=== PATIENT | female | born 1975 ===

== ENCOUNTER 2022-09-27 12:51 | Inpatient (IN) | payer OTHER ==
[~2022-09-27] VITALS: Ht 165.1 cm; Wt 93.0 kg
[2022-09-28] MEDS ORDERED: VASOTEC2.5 MG PO (09:50)
[2022-09-30] MEDS ORDERED: ENALAPRIL MALEAT5 MG (09:31)
[2022-09-30] MEDS ORDERED: SOD SUL-POTASS177 ML (09:31)
[2022-10-01] MEDS ORDERED: PEPCID AC20 MG PO (08:41)
[2022-10-01] MEDS ORDERED: ACETAMINOPHEN-1 EAC2 PO (08:41)
== END 2022-10-01 10:37 | disposition home or self-care (01) | DRG 743 ==
LOC: O/R 09-30 05:50 → OB/GYN 09-30 05:50
PROVIDERS: ADMIT Obstetrics & Gynecology; ATTEND Obstetrics & Gynecology
PROC: 0UT7FZZ Resection of Bilateral Fallopian Tubes, Via Natural or Artificial Opening With Percutaneous Endoscopic Assistance (ICD-10-PCS; 2022-09-30)
PROC: 0DNU4ZZ Release Omentum, Percutaneous Endoscopic Approach (ICD-10-PCS; 2022-09-30)
PROC: 0TJB8ZZ Inspection of Bladder, Via Natural or Artificial Opening Endoscopic (ICD-10-PCS; 2022-09-30)
PROC: 0UT9FZZ Resection of Uterus, Via Natural or Artificial Opening With Percutaneous Endoscopic Assistance (ICD-10-PCS; principal; 2022-09-30 14:45)
DX: D25.1 Intramural leiomyoma of uterus (principal); N81.11 Cystocele, midline; N73.6 Female pelvic peritoneal adhesions (postinfective); Z20.822 Contact with and (suspected) exposure to COVID-19